=== PATIENT | male | born 1965 | race Caucasian/White ===

== ENCOUNTER 2018-08-01 11:19 | Inpatient (IN) | payer MEDICAID ==
[2018-08-01 11:53] LABS: ADD MAN DIFF? NO
[2018-08-01 11:57] LABS: ABNORMAL IP MESSAGE 1; BASOPHILS % 0.2 % (0.0-2.0); EOSINOPHILS % 0.4 % (0.0-7.0); HEMATOCRIT 16.4 % (42.0-52.0); LYMPHOCYTES # 1.5 10^3/ul (0.8-2.9); LYMPHOCYTES % 14.6 % (15.0-51.0); MEAN CORPUSCULAR HEMOGLOBIN 20.6 pg (29.0-33.0); MEAN CORPUSCULAR HGB CONC 28.7 g/dl (32.0-37.0); MEAN CORPUSCULAR VOLUME 71.9 fl (82.0-101.0); MEAN PLATELET VOLUME 9.4 fl (7.4-10.4); MONOCYTE # 0.5 10^3/ul (0.3-0.9); MONOCYTES % 5.3 % (0.0-11.0); NEUTROPHIL # 8.1 10^3/ul (1.6-7.5); NEUTROPHILS % 79.1 % (39.0-77.0); NUCLEATED RED BLOOD CELLS% 0.2 /100WBC (0.0-0.0); PLATELET COUNT 516 10^3/UL (140-415); POSITIVE DIFF @See below; RED BLOOD COUNT 2.28 10^6/ul (4.70-6.10); RED CELL DISTRIBUTION WIDTH 16.7 % (11.5-14.5)
[2018-08-01 11:57] LABS: WHITE BLOOD COUNT 10.2 10^3/ul (4.8-10.8)
[2018-08-01 12:13] LABS: ALANINE AMINOTRANSFERASE 19 IU/L (13-69); ALBUMIN 3.2 g/dl (3.3-4.9); ALBUMIN/GLOBULIN RATIO 0.94; ALKALINE PHOSPHATASE 81 IU/L (42-121); ANION GAP 12 (5-13); ASPARTATE AMINO TRANSFERASE 15 IU/L (15-46); BILIRUBIN,INDIRECT 0.4 mg/dl (0-1.1); BILIRUBIN,TOTAL 0.4 mg/dl (0.2-1.3); BLOOD UREA NITROGEN 11 mg/dl (7-20); CARBON DIOXIDE 22 mmol/L (21-31); CHLORIDE 107 mmol/L (97-110); GLUCOSE 161 mg/dl (70-220); LIPASE 31 U/L (23-300); POTASSIUM 3.4 mmol/L (3.5-5.1); SODIUM 141 mmol/L (135-144); TOTAL PROTEIN 6.6 g/dl (6.1-8.1)
[2018-08-01] MEDS: SOD CHLORIDE 0.9% 1,000 ML IV (12:15)
[2018-08-01] MEDS: PANTOPRAZOLE 40 MG INJ IV (12:15)
[2018-08-01 12:16] LABS: INR 0.99; PROTIME 13.2 Sec (11.9-14.9)
[2018-08-01 12:17] LABS: PARTIAL THROMBOPLASTIN TIME 25.7 Sec (23.0-35.0)
[2018-08-01 12:22] LABS: HEMOGLOBIN 4.7 g/dl (14.0-18.0)
[2018-08-01 12:23] LABS: PATH REVIEW? YES
[2018-08-01 13:00] LABS: FERRITIN 4.5 ng/ml (11.1-264.0)
[2018-08-01 13:07] LABS: ANISOCYTOSIS 1+ (0-0); BAND NEUTROPHILS #M 0.1 10^3/ul (0.0-0.6); BAND NEUTROPHILS % (M) 1 % (0-4); BURR CELLS 1+ (0-0); ELLIPTO 1+ (0-0); HYPOCHROMASIA 3+ (0-0); LYMPHOCYTES #M 0.8 10^3/ul (0.8-2.9); LYMPHOCYTES % (M) 8 % (15-51); MONOCYTE #M 0.4 10^3/ul (0.3-0.9); MONOCYTES % (M) 4 % (0-11); PLATELET ESTIMATE INCREASED; POLYCHROMASIA 3+ (0-0); SCHISTOCYTES 1+ (0-0); SEG NEUT #M 8.9 10^3/ul (1.6-7.5); SEGMENTED NEUTROPHILS (M) % 87 % (39-77); SMUDGE%M 2 % (0-0); TARGET CELLS 1+ (0-0)
[2018-08-01 13:30] LABS: FOLATE 13.9 ng/ml (2.8-20.0)
[2018-08-01] MEDS ORDERED: ONDANSETRON 4 MG INJ IV (14:30)
[2018-08-01] MEDS: DEXTROSE 5%-0.9% NACL 1,000 ML IV (14:52)
[2018-08-01] MEDS: POTASSIUM CHLORIDE (SR) 20 MEQ TAB PO (14:52)
[2018-08-01 16:51] LABS: IRON 10 ug/dl (35-150)
[2018-08-01 17:01] LABS: % IRON SATURATION 2 % SAT (22-52); TOTAL IRON BINDING CAPACITY 403 ug/dl (241-421)
[2018-08-01] MEDS: morphine 2 MG INJ IV ×3 (17:38→23:20)
[2018-08-01] MEDS ORDERED: PANTOPRAZOLE 40 MG INJ IV (18:00)
[2018-08-01 18:09] LABS: FERRITIN 4.7 ng/ml (11.1-264.0)
[2018-08-01 18:42] LABS: CARCINOEMBRYONIC ANTIGEN 4.8 ng/ml (0.0-5.0)
[2018-08-01] MEDS: PANTOPRAZOLE IV 80 MG in SOD CHLORIDE 0.9% 100 ML IV (20:26)
[2018-08-01] MEDS: SOD FERRIC GLUC COMPLX 125 MG in SOD CHLORIDE 0.9% 100 ML IVPB (20:26)
[2018-08-01] MEDS: DOCUSATE SODIUM 100 MG CAP PO (20:26)
[2018-08-01 22:30] LABS: HEMATOCRIT 19.4 % (42.0-52.0)
[2018-08-01] MEDS: IOHEXOL 14.3 MG(I)/ML (ADULT) BTL PO (22:35)
[2018-08-01 22:45] LABS: HEMOGLOBIN 5.9 g/dl (14.0-18.0)
[2018-08-01] MEDS: SOD CHLORIDE 0.9% 100 ML (23:58)
[2018-08-01] MEDS: IOHEXOL 300MG/ML 150 ML BTL (23:58)
[2018-08-02 00:46] LABS: HEMATOCRIT 18.7 % (42.0-52.0)
[2018-08-02 00:48] LABS: HEMOGLOBIN 5.7 g/dl (14.0-18.0)
[2018-08-02] MEDS: PANTOPRAZOLE IV 80 MG in SOD CHLORIDE 0.9% 100 ML IV ×3 (01:00→20:36)
[2018-08-02] MEDS: morphine 2 MG INJ IV ×7 (01:52→23:31)
[2018-08-02] MEDS: FUROSEMIDE 20 MG INJ IV (01:52)
[2018-08-02] MEDS: SOD CHLORIDE 0.9% 250 ML IV* (01:53)
[2018-08-02] MEDS: DEXTROSE 5%-0.9% NACL 1,000 ML IV ×2 (05:37→22:33)
[2018-08-02 06:38] LABS: ADD MAN DIFF? NO
[2018-08-02 06:41] LABS: WHITE BLOOD COUNT 10.4 10^3/ul (4.8-10.8)
[2018-08-02 06:41] LABS: BASOPHILS % 0.4 % (0.0-2.0); EOSINOPHILS % 0.3 % (0.0-7.0); HEMATOCRIT 23.4 % (42.0-52.0); HEMOGLOBIN 7.4 g/dl (14.0-18.0); LYMPHOCYTES % 9.8 % (15.0-51.0); MEAN CORPUSCULAR HEMOGLOBIN 23.9 pg (29.0-33.0); MEAN CORPUSCULAR HGB CONC 31.6 g/dl (32.0-37.0); MEAN CORPUSCULAR VOLUME 75.5 fl (82.0-101.0); MEAN PLATELET VOLUME 10.1 fl (7.4-10.4); MONOCYTE # 0.7 10^3/ul (0.3-0.9); MONOCYTES % 6.3 % (0.0-11.0); NEUTROPHIL # 8.6 10^3/ul (1.6-7.5); NEUTROPHILS % 82.8 % (39.0-77.0); NUCLEATED RED BLOOD CELLS% 0.2 /100WBC (0.0-0.0); PLATELET COUNT 461 10^3/UL (140-415)
[2018-08-02 07:16] LABS: ALANINE AMINOTRANSFERASE 17 IU/L (13-69); ALBUMIN/GLOBULIN RATIO 0.88; ALKALINE PHOSPHATASE 75 IU/L (42-121); ANION GAP 10 (5-13); ASPARTATE AMINO TRANSFERASE 18 IU/L (15-46); BILIRUBIN,INDIRECT 2.3 mg/dl (0-1.1); BILIRUBIN,TOTAL 2.3 mg/dl (0.2-1.3); BLOOD UREA NITROGEN 7 mg/dl (7-20); CALCIUM 8.7 mg/dl (8.4-10.2); CARBON DIOXIDE 26 mmol/L (21-31); CHLORIDE 103 mmol/L (97-110); GLUCOSE 112 mg/dl (70-220); MAGNESIUM 1.8 mg/dl (1.7-2.5); POTASSIUM 3.2 mmol/L (3.5-5.1); SODIUM 139 mmol/L (135-144); TOTAL PROTEIN 6.4 g/dl (6.1-8.1)
[2018-08-02] MEDS: DOCUSATE SODIUM 100 MG CAP PO ×2 (09:00→20:36)
[2018-08-02] MEDS: INFLUENZA VIRUS VACCINE 0.5 ML (DISPENSING) IM* (09:10)
[2018-08-02 11:04] LABS: CREATINE KINASE 44 IU/L (23-200)
[2018-08-02 11:16] LABS: CK INDEX 0.5; CK-MB 0.23 ng/ml (0.0-2.4)
[2018-08-02 11:21] LABS: TROPONIN-I 0.129 ng/ml (0.000-0.120)
[2018-08-02 11:24] LABS: IMMEDIATE SPIN CROSSMATCH 1 4
[2018-08-02 11:46] LABS: HEMATOCRIT 22.5 % (42.0-52.0); HEMOGLOBIN 7.2 g/dl (14.0-18.0)
[2018-08-02 15:23] LABS: HEMATOCRIT 26.9 % (42.0-52.0); HEMOGLOBIN 8.6 g/dl (14.0-18.0)
[2018-08-02 15:43] LABS: CREATINE KINASE 44 IU/L (23-200)
[2018-08-02 15:55] LABS: CK INDEX 0.5; CK-MB < 0.22 ng/ml (0.0-2.4)
[2018-08-02] MEDS: BISACODYL (EC) 5 MG TAB PO (16:20)
[2018-08-02] MEDS: SOD FERRIC GLUC COMPLX 125 MG in SOD CHLORIDE 0.9% 100 ML IVPB (16:24)
[2018-08-02] MEDS: MAGNESIUM CITRATE 300 ML BTL PO (18:10)
[2018-08-02] MEDS: POLYETHYLENE GLYCOL 3350 119 GM POWDER PO (18:11)
[2018-08-02] MEDS: POTASSIUM CHLORIDE (SR) 20 MEQ TAB PO (20:36)
[2018-08-02 22:07] LABS: HEMATOCRIT 25.5 % (42.0-52.0); HEMOGLOBIN 8.4 g/dl (14.0-18.0)
[2018-08-02 22:39] LABS: CREATINE KINASE 36 IU/L (23-200)
[2018-08-02 22:52] LABS: CK INDEX 0.6; CK-MB < 0.22 ng/ml (0.0-2.4)
[2018-08-02 22:57] LABS: TROPONIN-I 0.125 ng/ml (0.000-0.120)
[2018-08-03] MEDS: morphine 2 MG INJ IV ×5 (03:21→20:50)
[2018-08-03] MEDS: PANTOPRAZOLE 40 MG INJ IV ×2 (06:03→19:07)
[2018-08-03] MEDS: POLYETHYLENE GLYCOL 3350 119 GM POWDER PO (06:04)
[2018-08-03 06:29] LABS: ADD MAN DIFF? NO
[2018-08-03 06:39] LABS: BASOPHIL # 0.1 10^3/ul (0.0-0.1); BASOPHILS % 0.5 % (0.0-2.0); EOSINOPHILS # 0.1 10^3/ul (0.0-0.5); EOSINOPHILS % 0.8 % (0.0-7.0); HEMATOCRIT 27.1 % (42.0-52.0); HEMOGLOBIN 8.5 g/dl (14.0-18.0); LYMPHOCYTES # 1.6 10^3/ul (0.8-2.9); LYMPHOCYTES % 16.1 % (15.0-51.0); MEAN CORPUSCULAR HEMOGLOBIN 24.3 pg (29.0-33.0); MEAN CORPUSCULAR HGB CONC 31.4 g/dl (32.0-37.0); MEAN CORPUSCULAR VOLUME 77.4 fl (82.0-101.0); MEAN PLATELET VOLUME 10.1 fl (7.4-10.4); MONOCYTE # 0.7 10^3/ul (0.3-0.9); MONOCYTES % 6.9 % (0.0-11.0); NEUTROPHIL # 7.5 10^3/ul (1.6-7.5); NEUTROPHILS % 75.3 % (39.0-77.0); NUCLEATED RED BLOOD CELLS% 0.2 /100WBC (0.0-0.0); PLATELET COUNT 466 10^3/UL (140-415); RED CELL DISTRIBUTION WIDTH 18.5 % (11.5-14.5)
[2018-08-03 07:08] LABS: ALANINE AMINOTRANSFERASE 11 IU/L (13-69); ALBUMIN 3.4 g/dl (3.3-4.9); ALBUMIN/GLOBULIN RATIO 1.03; ALKALINE PHOSPHATASE 74 IU/L (42-121); ANION GAP 11 (5-13); ASPARTATE AMINO TRANSFERASE 15 IU/L (15-46); BILIRUBIN,INDIRECT 1.7 mg/dl (0-1.1); BILIRUBIN,TOTAL 1.7 mg/dl (0.2-1.3); BLOOD UREA NITROGEN 6 mg/dl (7-20); CALCIUM 8.5 mg/dl (8.4-10.2); CARBON DIOXIDE 25 mmol/L (21-31); CHLORIDE 106 mmol/L (97-110); CREATININE 0.68 mg/dl (0.61-1.24); Estimated GFR > 60 mL/min (>60); GLUCOSE 106 mg/dl (70-220); POTASSIUM 3.3 mmol/L (3.5-5.1); SODIUM 142 mmol/L (135-144); TOTAL PROTEIN 6.7 g/dl (6.1-8.1)
[2018-08-03 07:10] LABS: LACTATE DEHYDROGENASE 366 IU/L (313-618)
[2018-08-03 07:10] LABS: BILIRUBIN,INDIRECT 1.7 mg/dl (0-1.1); BILIRUBIN,TOTAL 1.7 mg/dl (0.2-1.3)
[2018-08-03] MEDS: BISACODYL (EC) 5 MG TAB PO (08:29)
[2018-08-03] MEDS: DOCUSATE SODIUM 100 MG CAP PO ×2 (08:29→20:48)
[2018-08-03 13:24] LABS: HEMATOCRIT 27.5 % (42.0-52.0); HEMOGLOBIN 8.8 g/dl (14.0-18.0)
[2018-08-03] MEDS: POTASSIUM CHLORIDE (SR) 20 MEQ TAB PO (14:14)
[2018-08-03] MEDS: DEXTROSE 5%-0.9% NACL 1,000 ML IV (15:00)
[2018-08-03] MEDS: PROPOFOL 60 ML (17:35)
[2018-08-03] MEDS: LIDOCAINE 2% (SDV) 5 ML INJ (17:35)
[2018-08-03] MEDS: SOD FERRIC GLUC COMPLX 125 MG in SOD CHLORIDE 0.9% 100 ML IVPB (19:07)
[2018-08-04] MEDS: morphine 2 MG INJ IV ×3 (00:54→09:12)
[2018-08-04] MEDS: PANTOPRAZOLE 40 MG INJ IV ×2 (05:17→17:27)
[2018-08-04 06:17] LABS: ADD MAN DIFF? NO
[2018-08-04 06:22] LABS: WHITE BLOOD COUNT 11.1 10^3/ul (4.8-10.8)
[2018-08-04 06:22] LABS: BASOPHIL # 0.1 10^3/ul (0.0-0.1); BASOPHILS % 0.5 % (0.0-2.0); EOSINOPHILS # 0.1 10^3/ul (0.0-0.5); EOSINOPHILS % 0.5 % (0.0-7.0); HEMATOCRIT 26.1 % (42.0-52.0); HEMOGLOBIN 8.2 g/dl (14.0-18.0); LYMPHOCYTES # 1.2 10^3/ul (0.8-2.9); LYMPHOCYTES % 11.1 % (15.0-51.0); MEAN CORPUSCULAR HEMOGLOBIN 24.6 pg (29.0-33.0); MEAN CORPUSCULAR HGB CONC 31.4 g/dl (32.0-37.0); MEAN CORPUSCULAR VOLUME 78.4 fl (82.0-101.0); MEAN PLATELET VOLUME 9.9 fl (7.4-10.4); MONOCYTE # 0.8 10^3/ul (0.3-0.9); MONOCYTES % 7.2 % (0.0-11.0); NEUTROPHIL # 8.9 10^3/ul (1.6-7.5); NEUTROPHILS % 80.4 % (39.0-77.0); PLATELET COUNT 481 10^3/UL (140-415); RED BLOOD COUNT 3.33 10^6/ul (4.70-6.10); RED CELL DISTRIBUTION WIDTH 19.1 % (11.5-14.5)
[2018-08-04 06:43] LABS: ANION GAP 9 (5-13); BLOOD UREA NITROGEN 8 mg/dl (7-20); CALCIUM 8.4 mg/dl (8.4-10.2); CARBON DIOXIDE 24 mmol/L (21-31); CHLORIDE 106 mmol/L (97-110); CREATININE 0.77 mg/dl (0.61-1.24); Estimated GFR > 60 mL/min (>60); GLUCOSE 99 mg/dl (70-220); POTASSIUM 3.7 mmol/L (3.5-5.1); SODIUM 139 mmol/L (135-144)
[2018-08-04 06:53] LABS: TROPONIN-I 0.038 ng/ml (0.000-0.120)
[2018-08-04] MEDS: DOCUSATE SODIUM 100 MG CAP PO ×2 (08:47→21:00)
[2018-08-04] MEDS: HYDROmorphONE 1 MG/ML SYG IV ×3 (10:25→21:12)
[2018-08-04] MEDS: SOD CHLORIDE 0.9% 1,000 ML IV (10:28)
[2018-08-04 15:21] LABS: HAPTOGLOBIN 322 mg/dL (43-212)
[2018-08-04] MEDS: SOD FERRIC GLUC COMPLX 125 MG in SOD CHLORIDE 0.9% 100 ML IVPB (16:44)
[2018-08-05] MEDS: HYDROmorphONE 1 MG/ML SYG IV ×4 (02:40→19:54)
[2018-08-05] MEDS: PANTOPRAZOLE 40 MG INJ IV ×2 (05:31→18:03)
[2018-08-05 06:08] LABS: ADD MAN DIFF? NO
[2018-08-05 06:15] LABS: BASOPHIL # 0.1 10^3/ul (0.0-0.1); BASOPHILS % 0.4 % (0.0-2.0); EOSINOPHILS # 0.1 10^3/ul (0.0-0.5); EOSINOPHILS % 0.9 % (0.0-7.0); HEMATOCRIT 26.6 % (42.0-52.0); HEMOGLOBIN 8.4 g/dl (14.0-18.0); LYMPHOCYTES # 1.6 10^3/ul (0.8-2.9); LYMPHOCYTES % 14.2 % (15.0-51.0); MEAN CORPUSCULAR HEMOGLOBIN 24.7 pg (29.0-33.0); MEAN CORPUSCULAR HGB CONC 31.6 g/dl (32.0-37.0); MEAN CORPUSCULAR VOLUME 78.2 fl (82.0-101.0); MEAN PLATELET VOLUME 9.8 fl (7.4-10.4); MONOCYTE # 0.9 10^3/ul (0.3-0.9); MONOCYTES % 7.6 % (0.0-11.0); NEUTROPHIL # 8.7 10^3/ul (1.6-7.5); NEUTROPHILS % 76.5 % (39.0-77.0); PLATELET COUNT 477 10^3/UL (140-415); RED CELL DISTRIBUTION WIDTH 20.3 % (11.5-14.5)
[2018-08-05 06:15] LABS: WHITE BLOOD COUNT 11.3 10^3/ul (4.8-10.8)
[2018-08-05 07:08] LABS: ANION GAP 10 (5-13); BLOOD UREA NITROGEN 8 mg/dl (7-20); CALCIUM 8.7 mg/dl (8.4-10.2); CARBON DIOXIDE 27 mmol/L (21-31); CHLORIDE 102 mmol/L (97-110); CREATININE 0.75 mg/dl (0.61-1.24); Estimated GFR > 60 mL/min (>60); GLUCOSE 100 mg/dl (70-220); POTASSIUM 3.8 mmol/L (3.5-5.1); SODIUM 139 mmol/L (135-144)
[2018-08-05] MEDS: DOCUSATE SODIUM 100 MG CAP PO ×2 (09:00→20:02)
[2018-08-05] MEDS: HYDROCODONE/APAP (5/325) TAB PO ×2 (12:05→18:04)
[2018-08-05] MEDS: SOD FERRIC GLUC COMPLX 125 MG in SOD CHLORIDE 0.9% 100 ML IVPB (18:04)
[2018-08-06] MEDS: HYDROmorphONE 1 MG/ML SYG IV ×5 (02:02→20:15)
[2018-08-06] MEDS: HYDROCODONE/APAP (5/325) TAB PO ×2 (04:34→16:43)
[2018-08-06] MEDS: PANTOPRAZOLE 40 MG INJ IV ×2 (05:55→16:45)
[2018-08-06] MEDS: DOCUSATE SODIUM 100 MG CAP PO ×2 (08:16→20:14)
[2018-08-06] MEDS ORDERED: ACETAMINOPHEN 325 MG TAB PO (16:00)
[2018-08-06] MEDS: SOD FERRIC GLUC COMPLX 125 MG in SOD CHLORIDE 0.9% 100 ML IVPB (16:43)
[2018-08-07] MEDS: HYDROCODONE/APAP (5/325) TAB PO ×3 (00:02→20:56)
[2018-08-07] MEDS: HYDROmorphONE 1 MG/ML SYG IV ×5 (03:27→22:35)
[2018-08-07] MEDS: PANTOPRAZOLE 40 MG INJ IV (05:54)
[2018-08-07] MEDS: DOCUSATE SODIUM 100 MG CAP PO (08:48)
[2018-08-07] MEDS: SUCRALFATE 1 GM TAB PO ×3 (12:50→20:56)
[2018-08-07] MEDS: IOHEXOL 14.3 MG(I)/ML (ADULT) BTL PO (13:00)
[2018-08-07] MEDS: IOHEXOL 100 ML (13:46)
[2018-08-07] MEDS: SOD CHLORIDE 0.9% 100 ML (13:46)
[2018-08-07] MEDS: SOD FERRIC GLUC COMPLX 125 MG in SOD CHLORIDE 0.9% 100 ML IVPB (17:03)
[2018-08-07] MEDS: PANTOPRAZOLE (EC) 40 MG TAB PO (17:03)
[2018-08-08] MEDS: HYDROmorphONE 1 MG/ML SYG IV ×5 (02:38→21:47)
[2018-08-08] MEDS: PANTOPRAZOLE (EC) 40 MG TAB PO ×2 (05:54→17:01)
[2018-08-08 06:12] LABS: ADD MAN DIFF? NO
[2018-08-08 06:15] LABS: WHITE BLOOD COUNT 11.1 10^3/ul (4.8-10.8)
[2018-08-08 06:15] LABS: BASOPHILS % 0.2 % (0.0-2.0); EOSINOPHILS # 0.1 10^3/ul (0.0-0.5); EOSINOPHILS % 0.7 % (0.0-7.0); HEMATOCRIT 27.8 % (42.0-52.0); HEMOGLOBIN 8.7 g/dl (14.0-18.0); LYMPHOCYTES # 1.4 10^3/ul (0.8-2.9); LYMPHOCYTES % 12.3 % (15.0-51.0); MEAN CORPUSCULAR HEMOGLOBIN 24.6 pg (29.0-33.0); MEAN CORPUSCULAR HGB CONC 31.3 g/dl (32.0-37.0); MEAN CORPUSCULAR VOLUME 78.5 fl (82.0-101.0); MEAN PLATELET VOLUME 9.9 fl (7.4-10.4); MONOCYTE # 0.6 10^3/ul (0.3-0.9); MONOCYTES % 5.6 % (0.0-11.0); NEUTROPHILS % 80.8 % (39.0-77.0); PLATELET COUNT 483 10^3/UL (140-415); RED BLOOD COUNT 3.54 10^6/ul (4.70-6.10); RED CELL DISTRIBUTION WIDTH 21.7 % (11.5-14.5)
[2018-08-08 06:36] LABS: ALANINE AMINOTRANSFERASE 16 IU/L (13-69); ALBUMIN/GLOBULIN RATIO 0.88; ALKALINE PHOSPHATASE 134 IU/L (42-121); ANION GAP 11 (5-13); ASPARTATE AMINO TRANSFERASE 21 IU/L (15-46); BILIRUBIN,INDIRECT 0.4 mg/dl (0-1.1); BILIRUBIN,TOTAL 0.4 mg/dl (0.2-1.3); BLOOD UREA NITROGEN 7 mg/dl (7-20); CALCIUM 8.8 mg/dl (8.4-10.2); CARBON DIOXIDE 32 mmol/L (21-31); CHLORIDE 97 mmol/L (97-110); Estimated GFR > 60 mL/min (>60); GLUCOSE 110 mg/dl (70-220); POTASSIUM 3.3 mmol/L (3.5-5.1); SODIUM 140 mmol/L (135-144); TOTAL PROTEIN 6.4 g/dl (6.1-8.1)
[2018-08-08 06:38] LABS: MAGNESIUM 1.8 mg/dl (1.7-2.5)
[2018-08-08] MEDS: SUCRALFATE 1 GM TAB PO ×4 (08:41→20:08)
[2018-08-08] MEDS: HYDROCODONE/APAP (5/325) TAB PO ×2 (10:15→19:23)
[2018-08-08] MEDS: SOD CHLORIDE 0.9% 500 ML IV (11:10)
[2018-08-08] MEDS: POTASSIUM CHLORIDE (SR) 20 MEQ TAB PO (11:10)
[2018-08-08] MEDS: SOD FERRIC GLUC COMPLX 125 MG in SOD CHLORIDE 0.9% 100 ML IVPB (16:56)
[2018-08-09] MEDS: HYDROCODONE/APAP (5/325) TAB PO ×4 (00:02→22:59)
[2018-08-09] MEDS: HYDROmorphONE 1 MG/ML SYG IV ×5 (01:42→20:06)
[2018-08-09] MEDS: PANTOPRAZOLE (EC) 40 MG TAB PO ×2 (06:31→17:11)
[2018-08-09 07:06] LABS: ADD MAN DIFF? NO
[2018-08-09 07:09] LABS: WHITE BLOOD COUNT 9.2 10^3/ul (4.8-10.8)
[2018-08-09 07:09] LABS: ABNORMAL IP MESSAGE 1; BASOPHIL # 0.1 10^3/ul (0.0-0.1); BASOPHILS % 0.5 % (0.0-2.0); EOSINOPHILS # 0.1 10^3/ul (0.0-0.5); HEMATOCRIT 27.4 % (42.0-52.0); HEMOGLOBIN 8.6 g/dl (14.0-18.0); LYMPHOCYTES # 1.3 10^3/ul (0.8-2.9); LYMPHOCYTES % 13.9 % (15.0-51.0); MEAN CORPUSCULAR HGB CONC 31.4 g/dl (32.0-37.0); MEAN CORPUSCULAR VOLUME 79.7 fl (82.0-101.0); MEAN PLATELET VOLUME 10.5 fl (7.4-10.4); MONOCYTE # 0.7 10^3/ul (0.3-0.9); MONOCYTES % 7.2 % (0.0-11.0); NEUTROPHIL # 7.1 10^3/ul (1.6-7.5); NEUTROPHILS % 77.1 % (39.0-77.0); PLATELET COUNT 490 10^3/UL (140-415); POSITIVE DIFF @See below; RED BLOOD COUNT 3.44 10^6/ul (4.70-6.10); RED CELL DISTRIBUTION WIDTH 22.1 % (11.5-14.5)
[2018-08-09 07:39] LABS: ANION GAP 11 (5-13); BLOOD UREA NITROGEN 7 mg/dl (7-20); CALCIUM 8.8 mg/dl (8.4-10.2); CARBON DIOXIDE 29 mmol/L (21-31); CHLORIDE 99 mmol/L (97-110); CREATININE 0.69 mg/dl (0.61-1.24); Estimated GFR > 60 mL/min (>60); GLUCOSE 95 mg/dl (70-220); POTASSIUM 3.5 mmol/L (3.5-5.1); SODIUM 139 mmol/L (135-144)
[2018-08-09] MEDS: SUCRALFATE 1 GM TAB PO ×4 (08:17→21:00)
[2018-08-09] MEDS: SOD FERRIC GLUC COMPLX 125 MG in SOD CHLORIDE 0.9% 100 ML IVPB (17:58)
[2018-08-10] MEDS: HYDROmorphONE 1 MG/ML SYG IV ×5 (00:28→23:14)
[2018-08-10] MEDS: HYDROCODONE/APAP (5/325) TAB PO ×4 (02:59→22:07)
[2018-08-10] MEDS: PANTOPRAZOLE (EC) 40 MG TAB PO ×2 (06:16→17:29)
[2018-08-10] MEDS: SUCRALFATE 1 GM TAB PO ×4 (08:17→20:55)
[2018-08-10] MEDS: IOHEXOL 14.3 MG(I)/ML (ADULT) BTL PO (15:57)
[2018-08-10] MEDS: IOHEXOL 300MG/ML 150 ML BTL (18:14)
[2018-08-10] MEDS: SOD CHLORIDE 0.9% 100 ML (18:14)
[2018-08-10] MEDS: SOD FERRIC GLUC COMPLX 125 MG in SOD CHLORIDE 0.9% 100 ML IVPB (19:22)
[2018-08-11] MEDS: HYDROCODONE/APAP (5/325) TAB PO ×4 (02:36→23:58)
[2018-08-11] MEDS: HYDROmorphONE 1 MG/ML SYG IV ×5 (03:43→20:31)
[2018-08-11] MEDS: PANTOPRAZOLE (EC) 40 MG TAB PO ×2 (06:11→17:19)
[2018-08-11] MEDS: SUCRALFATE 1 GM TAB PO ×4 (08:06→20:32)
[2018-08-11 08:15] LABS: ADD MAN DIFF? NO
[2018-08-11 08:23] LABS: WHITE BLOOD COUNT 9.4 10^3/ul (4.8-10.8)
[2018-08-11 08:23] LABS: ABNORMAL IP MESSAGE 1; BASOPHILS % 0.4 % (0.0-2.0); EOSINOPHILS # 0.1 10^3/ul (0.0-0.5); EOSINOPHILS % 1.5 % (0.0-7.0); HEMATOCRIT 28.9 % (42.0-52.0); HEMOGLOBIN 8.9 g/dl (14.0-18.0); LYMPHOCYTES # 1.4 10^3/ul (0.8-2.9); LYMPHOCYTES % 14.7 % (15.0-51.0); MEAN CORPUSCULAR HEMOGLOBIN 24.5 pg (29.0-33.0); MEAN CORPUSCULAR HGB CONC 30.8 g/dl (32.0-37.0); MEAN CORPUSCULAR VOLUME 79.6 fl (82.0-101.0); MEAN PLATELET VOLUME 10.3 fl (7.4-10.4); MONOCYTE # 0.6 10^3/ul (0.3-0.9); MONOCYTES % 5.9 % (0.0-11.0); NEUTROPHIL # 7.2 10^3/ul (1.6-7.5); NEUTROPHILS % 77.2 % (39.0-77.0); PLATELET COUNT 539 10^3/UL (140-415); POSITIVE DIFF @See below; RED BLOOD COUNT 3.63 10^6/ul (4.70-6.10); RED CELL DISTRIBUTION WIDTH 22.2 % (11.5-14.5)
[2018-08-11 08:39] LABS: ANION GAP 8 (5-13); BLOOD UREA NITROGEN 7 mg/dl (7-20); CALCIUM 9.2 mg/dl (8.4-10.2); CARBON DIOXIDE 31 mmol/L (21-31); CHLORIDE 100 mmol/L (97-110); CREATININE 0.74 mg/dl (0.61-1.24); Estimated GFR > 60 mL/min (>60); GLUCOSE 99 mg/dl (70-220); POTASSIUM 3.6 mmol/L (3.5-5.1); SODIUM 139 mmol/L (135-144)
[2018-08-12] MEDS: HYDROmorphONE 1 MG/ML SYG IV ×6 (01:37→23:30)
[2018-08-12] MEDS: PANTOPRAZOLE (EC) 40 MG TAB PO ×2 (05:18→17:38)
[2018-08-12] MEDS: HYDROCODONE/APAP (5/325) TAB PO ×4 (05:21→21:43)
[2018-08-12 07:32] LABS: ABNORMAL IP MESSAGE 1; ADD MAN DIFF? NO; BASOPHIL # 0.1 10^3/ul (0.0-0.1); BASOPHILS % 0.5 % (0.0-2.0); EOSINOPHILS # 0.1 10^3/ul (0.0-0.5); EOSINOPHILS % 1.2 % (0.0-7.0); HEMATOCRIT 27.3 % (42.0-52.0); HEMOGLOBIN 8.5 g/dl (14.0-18.0); LYMPHOCYTES # 1.1 10^3/ul (0.8-2.9); LYMPHOCYTES % 11.7 % (15.0-51.0); MEAN CORPUSCULAR HEMOGLOBIN 24.9 pg (29.0-33.0); MEAN CORPUSCULAR HGB CONC 31.1 g/dl (32.0-37.0); MEAN CORPUSCULAR VOLUME 79.8 fl (82.0-101.0); MEAN PLATELET VOLUME 10.2 fl (7.4-10.4); MONOCYTE # 0.6 10^3/ul (0.3-0.9); MONOCYTES % 6.2 % (0.0-11.0); NEUTROPHIL # 7.5 10^3/ul (1.6-7.5); NEUTROPHILS % 80.1 % (39.0-77.0); PLATELET COUNT 547 10^3/UL (140-415); POSITIVE DIFF @See below; RED BLOOD COUNT 3.42 10^6/ul (4.70-6.10); RED CELL DISTRIBUTION WIDTH 22.7 % (11.5-14.5)
[2018-08-12 07:32] LABS: WHITE BLOOD COUNT 9.4 10^3/ul (4.8-10.8)
[2018-08-12] MEDS: SUCRALFATE 1 GM TAB PO ×4 (08:22→21:42)
[2018-08-12 08:24] LABS: ANION GAP 10 (5-13); BLOOD UREA NITROGEN 9 mg/dl (7-20); CARBON DIOXIDE 31 mmol/L (21-31); CHLORIDE 99 mmol/L (97-110); CREATININE 0.68 mg/dl (0.61-1.24); Estimated GFR > 60 mL/min (>60); GLUCOSE 107 mg/dl (70-220); POTASSIUM 3.8 mmol/L (3.5-5.1); SODIUM 140 mmol/L (135-144)
[2018-08-13] MEDS: HYDROmorphONE 1 MG/ML SYG IV ×5 (03:23→20:26)
[2018-08-13] MEDS: PANTOPRAZOLE (EC) 40 MG TAB PO ×2 (05:08→17:45)
[2018-08-13] MEDS: HYDROCODONE/APAP (5/325) TAB PO (05:09)
[2018-08-13] MEDS: SUCRALFATE 1 GM TAB PO ×4 (08:05→20:25)
[2018-08-13] MEDS: HYDROCODONE/APAP (7.5/325) TAB PO ×3 (13:05→23:28)
[2018-08-14] MEDS: HYDROmorphONE 1 MG/ML SYG IV ×7 (00:36→20:26)
[2018-08-14] MEDS: HYDROCODONE/APAP (7.5/325) TAB PO ×6 (03:03→23:27)
[2018-08-14] MEDS: PANTOPRAZOLE (EC) 40 MG TAB PO ×2 (05:54→17:10)
[2018-08-14] MEDS: SUCRALFATE 1 GM TAB PO ×4 (08:17→20:26)
[2018-08-15] MEDS: HYDROmorphONE 1 MG/ML SYG IV ×6 (00:32→21:10)
[2018-08-15] MEDS: HYDROCODONE/APAP (7.5/325) TAB PO ×3 (03:29→11:44)
[2018-08-15] MEDS: PANTOPRAZOLE (EC) 40 MG TAB PO ×2 (06:05→17:06)
[2018-08-15 06:21] LABS: ADD MAN DIFF? NO
[2018-08-15 06:26] LABS: ABNORMAL IP MESSAGE 1; BASOPHIL # 0.1 10^3/ul (0.0-0.1); BASOPHILS % 0.7 % (0.0-2.0); EOSINOPHILS # 0.2 10^3/ul (0.0-0.5); EOSINOPHILS % 1.9 % (0.0-7.0); HEMATOCRIT 28.9 % (42.0-52.0); HEMOGLOBIN 8.9 g/dl (14.0-18.0); LYMPHOCYTES # 1.6 10^3/ul (0.8-2.9); LYMPHOCYTES % 18.8 % (15.0-51.0); MEAN CORPUSCULAR HEMOGLOBIN 24.7 pg (29.0-33.0); MEAN CORPUSCULAR HGB CONC 30.8 g/dl (32.0-37.0); MEAN CORPUSCULAR VOLUME 80.3 fl (82.0-101.0); MEAN PLATELET VOLUME 11.1 fl (7.4-10.4); MONOCYTE # 0.5 10^3/ul (0.3-0.9); MONOCYTES % 6.2 % (0.0-11.0); NEUTROPHIL # 6.2 10^3/ul (1.6-7.5); NEUTROPHILS % 72.2 % (39.0-77.0); PLATELET COUNT 479 10^3/UL (140-415); POSITIVE DIFF @See below; RED CELL DISTRIBUTION WIDTH 22.6 % (11.5-14.5)
[2018-08-15 06:26] LABS: WHITE BLOOD COUNT 8.6 10^3/ul (4.8-10.8)
[2018-08-15 06:49] LABS: ALANINE AMINOTRANSFERASE 20 IU/L (13-69); ALBUMIN 3.5 g/dl (3.3-4.9); ALKALINE PHOSPHATASE 177 IU/L (42-121); ANION GAP 9 (5-13); ASPARTATE AMINO TRANSFERASE 24 IU/L (15-46); BILIRUBIN,INDIRECT 0.2 mg/dl (0-1.1); BILIRUBIN,TOTAL 0.2 mg/dl (0.2-1.3); BLOOD UREA NITROGEN 12 mg/dl (7-20); CALCIUM 8.9 mg/dl (8.4-10.2); CARBON DIOXIDE 25 mmol/L (21-31); CHLORIDE 104 mmol/L (97-110); CREATININE 0.65 mg/dl (0.61-1.24); Estimated GFR > 60 mL/min (>60); GLUCOSE 101 mg/dl (70-220); SODIUM 138 mmol/L (135-144)
[2018-08-15] MEDS: SUCRALFATE 1 GM TAB PO ×4 (08:53→20:01)
[2018-08-15] MEDS: HYDROCODONE/APAP (10/325) TAB PO ×2 (15:46→19:53)
[2018-08-16] MEDS: HYDROCODONE/APAP (10/325) TAB PO ×6 (00:01→20:10)
[2018-08-16] MEDS: HYDROmorphONE 1 MG/ML SYG IV ×6 (01:10→22:04)
[2018-08-16] MEDS: PANTOPRAZOLE (EC) 40 MG TAB PO ×2 (05:51→18:01)
[2018-08-16 07:54] LABS: ADD MAN DIFF? NO
[2018-08-16 08:00] LABS: WHITE BLOOD COUNT 8.2 10^3/ul (4.8-10.8)
[2018-08-16 08:00] LABS: ABNORMAL IP MESSAGE 1; BASOPHILS % 0.4 % (0.0-2.0); EOSINOPHILS # 0.1 10^3/ul (0.0-0.5); EOSINOPHILS % 1.5 % (0.0-7.0); HEMATOCRIT 29.4 % (42.0-52.0); HEMOGLOBIN 9.1 g/dl (14.0-18.0); LYMPHOCYTES # 1.4 10^3/ul (0.8-2.9); LYMPHOCYTES % 17.1 % (15.0-51.0); MEAN CORPUSCULAR HEMOGLOBIN 24.7 pg (29.0-33.0); MEAN CORPUSCULAR VOLUME 79.7 fl (82.0-101.0); MEAN PLATELET VOLUME 9.8 fl (7.4-10.4); MONOCYTE # 0.5 10^3/ul (0.3-0.9); MONOCYTES % 6.2 % (0.0-11.0); NEUTROPHIL # 6.1 10^3/ul (1.6-7.5); NEUTROPHILS % 74.4 % (39.0-77.0); PLATELET COUNT 591 10^3/UL (140-415); POSITIVE DIFF @See below; RED BLOOD COUNT 3.69 10^6/ul (4.70-6.10); RED CELL DISTRIBUTION WIDTH 22.2 % (11.5-14.5)
[2018-08-16 08:20] LABS: PHOSPHORUS 4.8 mg/dl (2.5-4.9)
[2018-08-16 08:20] LABS: MAGNESIUM 1.9 mg/dl (1.7-2.5)
[2018-08-16 08:23] LABS: ALANINE AMINOTRANSFERASE 19 IU/L (13-69); ALBUMIN 3.7 g/dl (3.3-4.9); ALBUMIN/GLOBULIN RATIO 1.08; ALKALINE PHOSPHATASE 195 IU/L (42-121); ANION GAP 11 (5-13); ASPARTATE AMINO TRANSFERASE 22 IU/L (15-46); BILIRUBIN,INDIRECT 0.3 mg/dl (0-1.1); BILIRUBIN,TOTAL 0.3 mg/dl (0.2-1.3); BLOOD UREA NITROGEN 11 mg/dl (7-20); CALCIUM 9.1 mg/dl (8.4-10.2); CARBON DIOXIDE 27 mmol/L (21-31); CHLORIDE 102 mmol/L (97-110); CREATININE 0.71 mg/dl (0.61-1.24); Estimated GFR > 60 mL/min (>60); GLUCOSE 101 mg/dl (70-220); POTASSIUM 3.9 mmol/L (3.5-5.1); SODIUM 140 mmol/L (135-144); TOTAL PROTEIN 7.1 g/dl (6.1-8.1)
[2018-08-16] MEDS: SUCRALFATE 1 GM TAB PO ×4 (08:25→20:38)
[2018-08-17] MEDS: HYDROCODONE/APAP (10/325) TAB PO ×2 (00:02→08:09)
[2018-08-17] MEDS: HYDROmorphONE 1 MG/ML SYG IV ×3 (02:05→10:16)
[2018-08-17] MEDS: PANTOPRAZOLE (EC) 40 MG TAB PO (05:56)
[2018-08-17] MEDS: SUCRALFATE 1 GM TAB PO (08:09)
== END 2018-08-17 12:05 | disposition home or self-care (01) | DRG 374 ==
LOC: 5EC 08-05 11:20 → E/R 11:19 → TEL 12:27
PROC: 0DB88ZX Excision of Small Intestine, Via Natural or Artificial Opening Endoscopic, Diagnostic (ICD-10-PCS; principal; 2018-08-03 16:35)
PROC: 0DJD8ZZ Inspection of Lower Intestinal Tract, Via Natural or Artificial Opening Endoscopic (ICD-10-PCS; 2018-08-03 16:35)
PROC: 30233N1 Transfusion of Nonautologous Red Blood Cells into Peripheral Vein, Percutaneous Approach (ICD-10-PCS; 2018-08-03 16:35)
DX: C18.9 Malignant neoplasm of colon, unspecified (principal); I21.A1 Myocardial infarction type 2; C78.4 Secondary malignant neoplasm of small intestine; D62 Acute posthemorrhagic anemia; Z90.49 Acquired absence of other specified parts of digestive tract; E87.6 Hypokalemia; Z87.891 Personal history of nicotine dependence; D50.0 Iron deficiency anemia secondary to blood loss (chronic); I80.8 Phlebitis and thrombophlebitis of other sites; D47.3 Essential (hemorrhagic) thrombocythemia; E80.6 Other disorders of bilirubin metabolism
CPT/HCPCS: 36415; 36430; 71045; 71260; 74176; 74177; 74178; 74182; 80048; 80053; 82247; 82248; 82378; 82550; 82553; 82607; 82728; 82746; 83010; 83540; 83615; 83690; 83735; 84100; 84484; 85014; 85018; 85025; 85610; 85730; 86850; 86900; 86901; 86920; 88305; 90686; 93005; 93306; 93971; 96374; 99291-25

== ENCOUNTER 2018-11-30 16:29 | Inpatient (IN) | payer MEDICAID ==
[2018-11-30] MEDS: POTASSIUM CHLORIDE 100 ML IVPB ×2 (01:58→17:51)
[2018-11-30] MEDS ORDERED: ASPIRIN 81 MG TAB PO (16:58)
[2018-11-30] MEDS: morphine 10 MG INJ IV (17:13)
[2018-11-30 17:19] LABS: ABNORMAL IP MESSAGE 1; HEMATOCRIT 16.4 % (42.0-52.0); MEAN CORPUSCULAR HEMOGLOBIN 18.3 pg (29.0-33.0); MEAN CORPUSCULAR HGB CONC 26.8 g/dl (32.0-37.0); MEAN CORPUSCULAR VOLUME 68.3 fl (82.0-101.0); MEAN PLATELET VOLUME 9.9 fl (7.4-10.4); PLATELET COUNT 459 10^3/UL (140-415); POSITIVE DIFF @See below; RED CELL DISTRIBUTION WIDTH 18.2 % (11.5-14.5)
[2018-11-30 17:19] LABS: WHITE BLOOD COUNT 10.6 10^3/ul (4.8-10.8)
[2018-11-30 17:28] LABS: ADD MAN DIFF? YES; HEMOGLOBIN 4.4 g/dl (14.0-18.0); PATH REVIEW? YES
[2018-11-30 17:37] LABS: ANION GAP 12 (5-13); BLOOD UREA NITROGEN 15 mg/dl (7-20); CALCIUM 8.9 mg/dl (8.4-10.2); CARBON DIOXIDE 24 mmol/L (21-31); CHLORIDE 106 mmol/L (97-110); CREATININE 0.91 mg/dl (0.61-1.24); Estimated GFR > 60 mL/min (>60); GLUCOSE 85 mg/dl (70-220); SODIUM 142 mmol/L (135-144)
[2018-11-30] MEDS: SOD CHLORIDE 0.9% 0 ML IV (17:41)
[2018-11-30 17:42] LABS: POTASSIUM 2.8 mmol/L (3.5-5.1)
[2018-11-30 17:49] LABS: TROPONIN-I < 0.012 ng/ml (0.000-0.120)
[2018-11-30] MEDS: HYDROmorphONE 2 MG/ML SYG IV (17:51)
[2018-11-30 18:04] LABS: ACANTHOCYTES 1+ (0-0); ANISOCYTOSIS 2+ (0-0); BAND NEUTROPHILS #M 0.3 10^3/ul (0.0-0.6); BAND NEUTROPHILS % (M) 3 % (0-4); BASOPHIL #M 0.1 10^3/ul (0.0-0.0); BASOPHILS % (M) 1 % (0-2); BURR CELLS 1+ (0-0); GIANT THROMBO% (M) 6 % (0-0); HYPOCHROMASIA 3+ (0-0); LYMPHOCYTES #M 1.4 10^3/ul (0.8-2.9); LYMPHOCYTES % (M) 14 % (15-51); MICROCYTOSIS 2+ (0-0); MONOCYTE #M 0.2 10^3/ul (0.3-0.9); MONOCYTES % (M) 2 % (0-11); OVALOCYTES 1+ (0-0); PLATELET ESTIMATE NORMAL; POIKILOCYTOSIS 1+ (0-0); POLYCHROMASIA 1+ (0-0); SEG NEUT #M 8.5 10^3/ul (1.6-7.5); SEGMENTED NEUTROPHILS (M) % 80 % (39-77); SMUDGE%M 1 % (0-0); TEAR DROP CELLS 1+ (0-0)
[2018-11-30] MEDS: MAGNESIUM SULFATE 2 GM/50 ML 50 ML IVPB (18:05)
[2018-11-30] MEDS ORDERED: ONDANSETRON 4 MG INJ IV (18:30)
[2018-11-30] MEDS ORDERED: ACETAMINOPHEN 325 MG TAB PO (18:30)
[2018-11-30 18:32] LABS: INR 1.11; PARTIAL THROMBOPLASTIN TIME 30.3 Sec (23.0-35.0); PROTIME 14.4 Sec (11.9-14.9); PT RATIO 1.1
[2018-11-30 19:20] LABS: ALANINE AMINOTRANSFERASE 20 IU/L (13-69); ALBUMIN 3.8 g/dl (3.3-4.9); ALKALINE PHOSPHATASE 76 IU/L (42-121); ASPARTATE AMINO TRANSFERASE 24 IU/L (15-46); BILIRUBIN,INDIRECT 0.1 mg/dl (0-1.1); BILIRUBIN,TOTAL 0.1 mg/dl (0.2-1.3); TOTAL PROTEIN 7.2 g/dl (6.1-8.1)
[2018-11-30] MEDS: IOHEXOL 14.3 MG(I)/ML (ADULT) BTL PO (21:30)
[2018-11-30] MEDS ORDERED: NACL 0.9% 3 ML SYG IV (21:30)
[2018-11-30] MEDS: SOD CHLORIDE 0.9% 1,000 ML IV (21:50)
[2018-11-30] MEDS: PANTOPRAZOLE 40 MG INJ IV (21:50)
[2018-11-30] MEDS: HYDROCODONE/APAP (5/325) TAB PO (23:32)
[2018-12-01] MEDS: POTASSIUM CHLORIDE 100 ML IVPB ×2 (01:58→02:00)
[2018-12-01] MEDS: morphine 2 MG INJ IV ×7 (02:08→20:42)
[2018-12-01] MEDS: SOD CHLORIDE 0.9% 100 ML (02:59)
[2018-12-01] MEDS: IOHEXOL 300MG/ML 150 ML BTL (02:59)
[2018-12-01] MEDS: PANTOPRAZOLE 40 MG INJ IV ×2 (05:57→17:57)
[2018-12-01 06:21] LABS: ADD MAN DIFF? NO
[2018-12-01 06:31] LABS: ABNORMAL IP MESSAGE 1; BASOPHILS % 0.4 % (0.0-2.0); EOSINOPHILS % 0.4 % (0.0-7.0); HEMATOCRIT 19.5 % (42.0-52.0); LYMPHOCYTES % 13.2 % (15.0-51.0); MEAN CORPUSCULAR HEMOGLOBIN 21.4 pg (29.0-33.0); MEAN CORPUSCULAR HGB CONC 29.2 g/dl (32.0-37.0); MEAN CORPUSCULAR VOLUME 73.3 fl (82.0-101.0); MEAN PLATELET VOLUME 10.3 fl (7.4-10.4); MONOCYTE # 0.4 10^3/ul (0.3-0.9); MONOCYTES % 4.6 % (0.0-11.0); NEUTROPHIL # 6.3 10^3/ul (1.6-7.5); NEUTROPHILS % 80.8 % (39.0-77.0); NUCLEATED RED BLOOD CELLS% 0.4 /100WBC (0.0-0.0); PLATELET COUNT 373 10^3/UL (140-415); POSITIVE DIFF @See below; RED BLOOD COUNT 2.66 10^6/ul (4.70-6.10); RED CELL DISTRIBUTION WIDTH 21.6 % (11.5-14.5)
[2018-12-01 06:31] LABS: WHITE BLOOD COUNT 7.8 10^3/ul (4.8-10.8)
[2018-12-01 06:39] LABS: HEMOGLOBIN 5.7 g/dl (14.0-18.0)
[2018-12-01 07:05] LABS: ALANINE AMINOTRANSFERASE 13 IU/L (13-69); ALBUMIN 3.3 g/dl (3.3-4.9); ALBUMIN/GLOBULIN RATIO 1.06; ALKALINE PHOSPHATASE 62 IU/L (42-121); ANION GAP 8 (5-13); ASPARTATE AMINO TRANSFERASE 11 IU/L (15-46); BILIRUBIN,INDIRECT 0.4 mg/dl (0-1.1); BILIRUBIN,TOTAL 0.4 mg/dl (0.2-1.3); BLOOD UREA NITROGEN 11 mg/dl (7-20); CALCIUM 8.4 mg/dl (8.4-10.2); CARBON DIOXIDE 26 mmol/L (21-31); CHLORIDE 109 mmol/L (97-110); Estimated GFR > 60 mL/min (>60); GLUCOSE 124 mg/dl (70-220); MAGNESIUM 2.2 mg/dl (1.7-2.5); POTASSIUM 3.2 mmol/L (3.5-5.1); SODIUM 143 mmol/L (135-144); TOTAL PROTEIN 6.4 g/dl (6.1-8.1)
[2018-12-01 07:23] LABS: IRON 15 ug/dl (35-150)
[2018-12-01 07:34] LABS: % IRON SATURATION 4 % SAT (22-52); TOTAL IRON BINDING CAPACITY 380 ug/dl (241-421)
[2018-12-01] MEDS: SUCRALFATE 1 GM TAB PO ×4 (08:22→20:41)
[2018-12-01] MEDS: POTASSIUM CHLORIDE (SR) 20 MEQ TAB PO (11:17)
[2018-12-01 15:59] LABS: ADD MAN DIFF? NO
[2018-12-01 16:01] LABS: WHITE BLOOD COUNT 8.5 10^3/ul (4.8-10.8)
[2018-12-01 16:01] LABS: ABNORMAL IP MESSAGE 1; BASOPHILS % 0.5 % (0.0-2.0); EOSINOPHILS % 0.2 % (0.0-7.0); HEMATOCRIT 22.7 % (42.0-52.0); LYMPHOCYTES # 0.8 10^3/ul (0.8-2.9); LYMPHOCYTES % 9.7 % (15.0-51.0); MEAN CORPUSCULAR HEMOGLOBIN 22.1 pg (29.0-33.0); MEAN CORPUSCULAR HGB CONC 30.4 g/dl (32.0-37.0); MEAN CORPUSCULAR VOLUME 72.8 fl (82.0-101.0); MONOCYTE # 0.4 10^3/ul (0.3-0.9); MONOCYTES % 4.7 % (0.0-11.0); NEUTROPHIL # 7.2 10^3/ul (1.6-7.5); NEUTROPHILS % 84.4 % (39.0-77.0); NUCLEATED RED BLOOD CELLS% 0.4 /100WBC (0.0-0.0); PLATELET COUNT 392 10^3/UL (140-415); POSITIVE DIFF @See below; RED BLOOD COUNT 3.12 10^6/ul (4.70-6.10); RED CELL DISTRIBUTION WIDTH 21.5 % (11.5-14.5)
[2018-12-01 16:04] LABS: HEMOGLOBIN 6.9 g/dl (14.0-18.0)
[2018-12-01] MEDS: morphine 4 MG/ML VIAL IV (21:39)
[2018-12-02] MEDS: morphine 4 MG/ML VIAL IV ×7 (00:51→21:48)
[2018-12-02] MEDS: HYDROCODONE/APAP (5/325) TAB PO ×2 (02:57→17:24)
[2018-12-02] MEDS: PANTOPRAZOLE 40 MG INJ IV ×2 (06:00→17:58)
[2018-12-02] MEDS: SUCRALFATE 1 GM TAB PO ×4 (08:16→22:11)
[2018-12-02 09:55] LABS: WHITE BLOOD COUNT 8.6 10^3/ul (4.8-10.8)
[2018-12-02 09:55] LABS: ADD MAN DIFF? NO; BASOPHILS % 0.5 % (0.0-2.0); EOSINOPHILS % 0.2 % (0.0-7.0); HEMATOCRIT 24.6 % (42.0-52.0); HEMOGLOBIN 7.5 g/dl (14.0-18.0); LYMPHOCYTES # 0.8 10^3/ul (0.8-2.9); LYMPHOCYTES % 9.6 % (15.0-51.0); MEAN CORPUSCULAR HEMOGLOBIN 22.7 pg (29.0-33.0); MEAN CORPUSCULAR HGB CONC 30.5 g/dl (32.0-37.0); MEAN CORPUSCULAR VOLUME 74.3 fl (82.0-101.0); MEAN PLATELET VOLUME 10.1 fl (7.4-10.4); MONOCYTE # 0.6 10^3/ul (0.3-0.9); MONOCYTES % 6.4 % (0.0-11.0); NEUTROPHIL # 7.2 10^3/ul (1.6-7.5); PLATELET COUNT 366 10^3/UL (140-415); RED BLOOD COUNT 3.31 10^6/ul (4.70-6.10); RED CELL DISTRIBUTION WIDTH 21.4 % (11.5-14.5)
[2018-12-02 10:12] LABS: MAGNESIUM 2.1 mg/dl (1.7-2.5)
[2018-12-02 10:12] LABS: PHOSPHORUS 3.5 mg/dl (2.5-4.9)
[2018-12-02 10:13] LABS: ALANINE AMINOTRANSFERASE 17 IU/L (13-69); ALBUMIN 3.1 g/dl (3.3-4.9); ALBUMIN/GLOBULIN RATIO 1.06; ALKALINE PHOSPHATASE 68 IU/L (42-121); ANION GAP 7 (5-13); ASPARTATE AMINO TRANSFERASE 11 IU/L (15-46); BILIRUBIN,INDIRECT 0.8 mg/dl (0-1.1); BILIRUBIN,TOTAL 0.8 mg/dl (0.2-1.3); BLOOD UREA NITROGEN 8 mg/dl (7-20); CALCIUM 8.6 mg/dl (8.4-10.2); CARBON DIOXIDE 28 mmol/L (21-31); CHLORIDE 103 mmol/L (97-110); CREATININE 0.62 mg/dl (0.61-1.24); Estimated GFR > 60 mL/min (>60); GLUCOSE 87 mg/dl (70-220); POTASSIUM 3.3 mmol/L (3.5-5.1); SODIUM 138 mmol/L (135-144)
[2018-12-02] MEDS: POTASSIUM CHLORIDE 50 ML IVPB ×3 (12:05→18:20)
[2018-12-02] MEDS: SOD FERRIC GLUC COMPLX 125 MG in SOD CHLORIDE 0.9% 100 ML IVPB (12:06)
[2018-12-02] MEDS ORDERED: ONDANSETRON 4 MG INJ IV (17:00)
[2018-12-02] MEDS ORDERED: MEPERIDINE 25 MG INJ IV (17:00)
[2018-12-02] MEDS ORDERED: FENTAnyl 50 MCG/ML VIAL IV (17:00)
[2018-12-02] MEDS ORDERED: DIPHENHYDRAMINE 50 MG INJ IV (17:00)
[2018-12-02 22:28] LABS: IMMEDIATE SPIN CROSSMATCH 1 5
[2018-12-03] MEDS: HYDROmorphONE 1 MG/ML SYG IV ×5 (00:17→20:48)
[2018-12-03] MEDS: HYDROCODONE/APAP (5/325) TAB PO ×3 (03:06→23:08)
[2018-12-03 05:27] LABS: ADD MAN DIFF? NO
[2018-12-03 05:32] LABS: WHITE BLOOD COUNT 9.7 10^3/ul (4.8-10.8)
[2018-12-03 05:32] LABS: BASOPHILS % 0.2 % (0.0-2.0); EOSINOPHILS % 0.4 % (0.0-7.0); HEMATOCRIT 29.1 % (42.0-52.0); HEMOGLOBIN 8.9 g/dl (14.0-18.0); LYMPHOCYTES # 0.9 10^3/ul (0.8-2.9); LYMPHOCYTES % 9.3 % (15.0-51.0); MEAN CORPUSCULAR HEMOGLOBIN 23.2 pg (29.0-33.0); MEAN CORPUSCULAR HGB CONC 30.6 g/dl (32.0-37.0); MEAN PLATELET VOLUME 10.7 fl (7.4-10.4); MONOCYTE # 0.6 10^3/ul (0.3-0.9); MONOCYTES % 6.2 % (0.0-11.0); NEUTROPHIL # 8.1 10^3/ul (1.6-7.5); NEUTROPHILS % 83.3 % (39.0-77.0); PLATELET COUNT 407 10^3/UL (140-415); RED BLOOD COUNT 3.83 10^6/ul (4.70-6.10); RED CELL DISTRIBUTION WIDTH 21.6 % (11.5-14.5)
[2018-12-03] MEDS: PANTOPRAZOLE 40 MG INJ IV ×2 (05:52→17:03)
[2018-12-03 05:59] LABS: ALANINE AMINOTRANSFERASE 11 IU/L (13-69); ALBUMIN 3.5 g/dl (3.3-4.9); ALBUMIN/GLOBULIN RATIO 0.92; ALKALINE PHOSPHATASE 72 IU/L (42-121); ANION GAP 10 (5-13); ASPARTATE AMINO TRANSFERASE 17 IU/L (15-46); BILIRUBIN,INDIRECT 0.8 mg/dl (0-1.1); BILIRUBIN,TOTAL 0.8 mg/dl (0.2-1.3); BLOOD UREA NITROGEN 6 mg/dl (7-20); CALCIUM 8.7 mg/dl (8.4-10.2); CARBON DIOXIDE 30 mmol/L (21-31); CHLORIDE 97 mmol/L (97-110); CREATININE 0.59 mg/dl (0.61-1.24); Estimated GFR > 60 mL/min (>60); GLUCOSE 94 mg/dl (70-220); POTASSIUM 3.3 mmol/L (3.5-5.1); SODIUM 137 mmol/L (135-144); TOTAL PROTEIN 7.3 g/dl (6.1-8.1)
[2018-12-03] MEDS: SUCRALFATE 1 GM TAB PO ×4 (08:25→20:48)
[2018-12-03] MEDS: SOD FERRIC GLUC COMPLX 125 MG in SOD CHLORIDE 0.9% 100 ML IVPB (12:08)
[2018-12-03] MEDS: morphine (ER) 30 MG TAB PO ×2 (17:03→21:00)
[2018-12-04 05:09] LABS: ADD MAN DIFF? NO
[2018-12-04 05:12] LABS: WHITE BLOOD COUNT 9.1 10^3/ul (4.8-10.8)
[2018-12-04 05:12] LABS: ABNORMAL IP MESSAGE 1; BASOPHILS % 0.4 % (0.0-2.0); EOSINOPHILS # 0.1 10^3/ul (0.0-0.5); EOSINOPHILS % 0.5 % (0.0-7.0); HEMATOCRIT 30.1 % (42.0-52.0); HEMOGLOBIN 9.3 g/dl (14.0-18.0); LYMPHOCYTES # 1.5 10^3/ul (0.8-2.9); LYMPHOCYTES % 16.2 % (15.0-51.0); MEAN CORPUSCULAR HGB CONC 30.9 g/dl (32.0-37.0); MEAN CORPUSCULAR VOLUME 74.5 fl (82.0-101.0); MONOCYTE # 0.7 10^3/ul (0.3-0.9); MONOCYTES % 7.2 % (0.0-11.0); NEUTROPHIL # 6.9 10^3/ul (1.6-7.5); NEUTROPHILS % 75.5 % (39.0-77.0); PLATELET COUNT 376 10^3/UL (140-415); POSITIVE DIFF @See below; RED BLOOD COUNT 4.04 10^6/ul (4.70-6.10); RED CELL DISTRIBUTION WIDTH 22.1 % (11.5-14.5)
[2018-12-04 05:36] LABS: ALANINE AMINOTRANSFERASE 12 IU/L (13-69); ALBUMIN 3.4 g/dl (3.3-4.9); ALBUMIN/GLOBULIN RATIO 0.97; ALKALINE PHOSPHATASE 79 IU/L (42-121); ANION GAP 9 (5-13); ASPARTATE AMINO TRANSFERASE 13 IU/L (15-46); BILIRUBIN,INDIRECT 0.5 mg/dl (0-1.1); BILIRUBIN,TOTAL 0.5 mg/dl (0.2-1.3); BLOOD UREA NITROGEN 5 mg/dl (7-20); CALCIUM 8.8 mg/dl (8.4-10.2); CARBON DIOXIDE 33 mmol/L (21-31); CHLORIDE 96 mmol/L (97-110); CREATININE 0.67 mg/dl (0.61-1.24); Estimated GFR > 60 mL/min (>60); GLUCOSE 94 mg/dl (70-220); SODIUM 138 mmol/L (135-144); TOTAL PROTEIN 6.9 g/dl (6.1-8.1)
[2018-12-04 05:47] LABS: POTASSIUM 2.9 mmol/L (3.5-5.1)
[2018-12-04] MEDS: POTASSIUM CHLORIDE (SR) 10 MEQ TAB PO (06:21)
[2018-12-04] MEDS: PANTOPRAZOLE 40 MG INJ IV ×2 (06:22→18:26)
[2018-12-04] MEDS: HYDROmorphONE 1 MG/ML SYG IV ×4 (06:22→23:43)
[2018-12-04 07:26] LABS: MAGNESIUM 1.9 mg/dl (1.7-2.5)
[2018-12-04] MEDS: SUCRALFATE 1 GM TAB PO ×4 (09:21→20:00)
[2018-12-04] MEDS: morphine (ER) 30 MG TAB PO ×2 (09:21→20:00)
[2018-12-04] MEDS: HYDROCODONE/APAP (5/325) TAB PO ×3 (09:26→21:41)
[2018-12-04] MEDS: SOD FERRIC GLUC COMPLX 125 MG in SOD CHLORIDE 0.9% 100 ML IVPB (14:47)
[2018-12-05] MEDS: PANTOPRAZOLE 40 MG INJ IV ×2 (05:37→18:02)
[2018-12-05] MEDS: HYDROmorphONE 1 MG/ML SYG IV ×4 (05:37→18:02)
[2018-12-05 05:38] LABS: ADD MAN DIFF? NO
[2018-12-05 05:51] LABS: WHITE BLOOD COUNT 9.4 10^3/ul (4.8-10.8)
[2018-12-05 05:52] LABS: ABNORMAL IP MESSAGE 1; BASOPHIL # 0.1 10^3/ul (0.0-0.1); BASOPHILS % 0.5 % (0.0-2.0); EOSINOPHILS # 0.1 10^3/ul (0.0-0.5); EOSINOPHILS % 1.1 % (0.0-7.0); HEMATOCRIT 30.4 % (42.0-52.0); HEMOGLOBIN 9.3 g/dl (14.0-18.0); LYMPHOCYTES # 1.3 10^3/ul (0.8-2.9); LYMPHOCYTES % 13.7 % (15.0-51.0); MEAN CORPUSCULAR HGB CONC 30.6 g/dl (32.0-37.0); MEAN CORPUSCULAR VOLUME 75.2 fl (82.0-101.0); MEAN PLATELET VOLUME 10.5 fl (7.4-10.4); MONOCYTE # 0.6 10^3/ul (0.3-0.9); MONOCYTES % 6.7 % (0.0-11.0); NEUTROPHIL # 7.3 10^3/ul (1.6-7.5); NEUTROPHILS % 77.5 % (39.0-77.0); PLATELET COUNT 410 10^3/UL (140-415); POSITIVE DIFF @See below; RED BLOOD COUNT 4.04 10^6/ul (4.70-6.10); RED CELL DISTRIBUTION WIDTH 23.2 % (11.5-14.5)
[2018-12-05] MEDS: morphine (ER) 30 MG TAB PO ×2 (08:43→20:45)
[2018-12-05] MEDS: SUCRALFATE 1 GM TAB PO ×4 (08:43→20:44)
[2018-12-05 10:59] LABS: ANION GAP 10 (5-13); BLOOD UREA NITROGEN 7 mg/dl (7-20); CALCIUM 8.9 mg/dl (8.4-10.2); CARBON DIOXIDE 32 mmol/L (21-31); CHLORIDE 98 mmol/L (97-110); CREATININE 0.63 mg/dl (0.61-1.24); Estimated GFR > 60 mL/min (>60); GLUCOSE 95 mg/dl (70-220); POTASSIUM 3.1 mmol/L (3.5-5.1); SODIUM 140 mmol/L (135-144)
[2018-12-05] MEDS: HYDROCODONE/APAP (5/325) TAB PO ×2 (12:26→19:52)
[2018-12-05] MEDS: SOD FERRIC GLUC COMPLX 125 MG in SOD CHLORIDE 0.9% 100 ML IVPB (12:57)
[2018-12-05] MEDS: POTASSIUM CHLORIDE (SR) 20 MEQ TAB PO (18:02)
[2018-12-06] MEDS: HYDROmorphONE 1 MG/ML SYG IV ×4 (00:07→16:36)
[2018-12-06 06:08] LABS: ANION GAP 11 (5-13); BLOOD UREA NITROGEN 8 mg/dl (7-20); CALCIUM 8.8 mg/dl (8.4-10.2); CARBON DIOXIDE 31 mmol/L (21-31); CHLORIDE 97 mmol/L (97-110); CREATININE 0.67 mg/dl (0.61-1.24); Estimated GFR > 60 mL/min (>60); GLUCOSE 107 mg/dl (70-220); POTASSIUM 3.4 mmol/L (3.5-5.1); SODIUM 139 mmol/L (135-144)
[2018-12-06] MEDS: PANTOPRAZOLE 40 MG INJ IV ×2 (06:16→18:26)
[2018-12-06] MEDS: HYDROCODONE/APAP (5/325) TAB PO ×2 (06:18→11:17)
[2018-12-06] MEDS: SUCRALFATE 1 GM TAB PO ×4 (08:57→20:21)
[2018-12-06] MEDS: morphine (ER) 30 MG TAB PO (08:57)
[2018-12-06] MEDS: PROPOFOL 20 ML (10:05)
[2018-12-06] MEDS: LIDOCAINE 2% (SDV) 5 ML INJ (10:05)
[2018-12-06] MEDS: IOHEXOL 14.3 MG(I)/ML (ADULT) BTL PO (10:06)
[2018-12-06] MEDS: SOD FERRIC GLUC COMPLX 125 MG in SOD CHLORIDE 0.9% 100 ML IVPB (12:53)
[2018-12-06] MEDS: morphine (ER) 15 MG TAB PO (20:21)
[2018-12-07] MEDS: PANTOPRAZOLE 40 MG INJ IV ×2 (05:39→16:49)
[2018-12-07] MEDS: SUCRALFATE 1 GM TAB PO ×4 (08:40→20:07)
[2018-12-07] MEDS: morphine (ER) 15 MG TAB PO (08:40)
[2018-12-07] MEDS: HYDROmorphONE 1 MG/ML SYG IV ×2 (09:23→18:49)
[2018-12-07] MEDS: morphine (ER) 30 MG TAB PO (20:08)
[2018-12-07] MEDS: OXYCODONE/ACETAMINOPHEN (10/325) TAB PO (22:27)
[2018-12-08] MEDS: OXYCODONE/ACETAMINOPHEN (10/325) TAB PO ×4 (04:37→22:41)
[2018-12-08] MEDS: PANTOPRAZOLE 40 MG INJ IV ×2 (05:47→17:46)
[2018-12-08 05:51] LABS: ANION GAP 9 (5-13); BLOOD UREA NITROGEN 11 mg/dl (7-20); CALCIUM 9.3 mg/dl (8.4-10.2); CARBON DIOXIDE 32 mmol/L (21-31); CHLORIDE 99 mmol/L (97-110); CREATININE 0.69 mg/dl (0.61-1.24); Estimated GFR > 60 mL/min (>60); GLUCOSE 108 mg/dl (70-220); POTASSIUM 3.5 mmol/L (3.5-5.1); SODIUM 140 mmol/L (135-144)
[2018-12-08] MEDS: SUCRALFATE 1 GM TAB PO ×4 (09:20→21:29)
[2018-12-08] MEDS: morphine (ER) 30 MG TAB PO ×2 (09:24→21:29)
[2018-12-08 17:32] LABS: RETICULOCYTE RBC 4.17
[2018-12-08 17:32] LABS: RETICULOCYTE COUNT # 0.143 X10^6 (0.020-0.110); RETICULOCYTE COUNT % 3.4 % (0.5-1.5)
[2018-12-08 17:50] LABS: ALANINE AMINOTRANSFERASE 10 IU/L (13-69); ALBUMIN 3.8 g/dl (3.3-4.9); ALBUMIN/GLOBULIN RATIO 0.97; ALKALINE PHOSPHATASE 119 IU/L (42-121); ANION GAP 11 (5-13); ASPARTATE AMINO TRANSFERASE 25 IU/L (15-46); BILIRUBIN,INDIRECT 0.3 mg/dl (0-1.1); BILIRUBIN,TOTAL 0.3 mg/dl (0.2-1.3); BLOOD UREA NITROGEN 12 mg/dl (7-20); CALCIUM 9.3 mg/dl (8.4-10.2); CARBON DIOXIDE 32 mmol/L (21-31); CHLORIDE 96 mmol/L (97-110); CREATININE 0.79 mg/dl (0.61-1.24); Estimated GFR > 60 mL/min (>60); GLUCOSE 99 mg/dl (70-220); POTASSIUM 3.7 mmol/L (3.5-5.1); SODIUM 139 mmol/L (135-144); TOTAL PROTEIN 7.7 g/dl (6.1-8.1)
[2018-12-09 05:16] LABS: ADD MAN DIFF? NO
[2018-12-09 05:18] LABS: WHITE BLOOD COUNT 7.6 10^3/ul (4.8-10.8)
[2018-12-09 05:18] LABS: ABNORMAL IP MESSAGE 1; BASOPHIL # 0.1 10^3/ul (0.0-0.1); BASOPHILS % 0.7 % (0.0-2.0); EOSINOPHILS # 0.2 10^3/ul (0.0-0.5); EOSINOPHILS % 2.3 % (0.0-7.0); HEMATOCRIT 31.4 % (42.0-52.0); HEMOGLOBIN 9.4 g/dl (14.0-18.0); LYMPHOCYTES # 1.4 10^3/ul (0.8-2.9); LYMPHOCYTES % 17.9 % (15.0-51.0); MEAN CORPUSCULAR HEMOGLOBIN 23.2 pg (29.0-33.0); MEAN CORPUSCULAR HGB CONC 29.9 g/dl (32.0-37.0); MEAN CORPUSCULAR VOLUME 77.3 fl (82.0-101.0); MEAN PLATELET VOLUME 10.3 fl (7.4-10.4); MONOCYTE # 0.5 10^3/ul (0.3-0.9); NEUTROPHIL # 5.5 10^3/ul (1.6-7.5); NEUTROPHILS % 72.8 % (39.0-77.0); PLATELET COUNT 482 10^3/UL (140-415); POSITIVE DIFF @See below; RED BLOOD COUNT 4.06 10^6/ul (4.70-6.10)
[2018-12-09] MEDS: PANTOPRAZOLE 40 MG INJ IV (05:39)
[2018-12-09] MEDS: OXYCODONE/ACETAMINOPHEN (10/325) TAB PO ×5 (05:40→23:36)
[2018-12-09] MEDS: FOLIC ACID 1 MG TAB PO (09:03)
[2018-12-09] MEDS: morphine (ER) 30 MG TAB PO ×2 (09:03→21:14)
[2018-12-09] MEDS: SUCRALFATE 1 GM TAB PO ×4 (09:03→23:36)
[2018-12-09] MEDS ORDERED: ACETAMINOPHEN 500 MG TAB PO (15:30)
[2018-12-09] MEDS: PANTOPRAZOLE (EC) 40 MG TAB PO (17:52)
[2018-12-10] MEDS: OXYCODONE/ACETAMINOPHEN (10/325) TAB PO ×2 (05:16→11:55)
[2018-12-10] MEDS: PANTOPRAZOLE (EC) 40 MG TAB PO ×2 (05:16→18:11)
[2018-12-10] MEDS: HYDROmorphONE 1 MG/ML SYG IV (07:59)
[2018-12-10] MEDS: FOLIC ACID 1 MG TAB PO (08:03)
[2018-12-10] MEDS: SUCRALFATE 1 GM TAB PO ×4 (08:03→20:35)
[2018-12-10] MEDS: morphine (ER) 30 MG TAB PO ×2 (09:12→20:35)
[2018-12-10] MEDS ORDERED: DIPHENHYDRAMINE 25 MG CAP PO (11:00)
[2018-12-10] MEDS ORDERED: PEMBROLIZUMAB IV (11:30)
[2018-12-10] MEDS ORDERED: [UNRECOGNIZED DRUG - OTHER] IV (11:30)
[2018-12-10] MEDS: DIPHENHYDRAMINE 25 MG CAP PO (15:50)
[2018-12-10] MEDS: ACETAMINOPHEN 500 MG TAB PO (15:50)
[2018-12-10] MEDS: [UNRECOGNIZED DRUG - OTHER] IV (16:16)
[2018-12-10] MEDS: PEMBROLIZUMAB IV (16:16)
[2018-12-11] MEDS: OXYCODONE/ACETAMINOPHEN (10/325) TAB PO ×5 (02:32→23:31)
[2018-12-11] MEDS: PANTOPRAZOLE (EC) 40 MG TAB PO ×2 (06:26→17:36)
[2018-12-11] MEDS: FOLIC ACID 1 MG TAB PO (08:50)
[2018-12-11] MEDS: SUCRALFATE 1 GM TAB PO ×4 (08:50→20:19)
[2018-12-11] MEDS: morphine (ER) 30 MG TAB PO ×2 (08:51→21:31)
[2018-12-11] MEDS: HYDROmorphONE 1 MG/ML SYG IV ×2 (13:18→20:19)
[2018-12-12] MEDS: HYDROmorphONE 1 MG/ML SYG IV ×4 (02:13→19:11)
[2018-12-12] MEDS: OXYCODONE/ACETAMINOPHEN (10/325) TAB PO ×4 (04:40→22:56)
[2018-12-12 05:15] LABS: ADD MAN DIFF? NO
[2018-12-12 05:21] LABS: ABNORMAL IP MESSAGE 1; BASOPHIL # 0.1 10^3/ul (0.0-0.1); BASOPHILS % 0.7 % (0.0-2.0); EOSINOPHILS # 0.1 10^3/ul (0.0-0.5); EOSINOPHILS % 1.2 % (0.0-7.0); HEMATOCRIT 30.5 % (42.0-52.0); HEMOGLOBIN 9.2 g/dl (14.0-18.0); LYMPHOCYTES % 9.7 % (15.0-51.0); MEAN CORPUSCULAR HEMOGLOBIN 22.9 pg (29.0-33.0); MEAN CORPUSCULAR HGB CONC 30.2 g/dl (32.0-37.0); MEAN CORPUSCULAR VOLUME 75.9 fl (82.0-101.0); MEAN PLATELET VOLUME 10.3 fl (7.4-10.4); MONOCYTE # 0.6 10^3/ul (0.3-0.9); MONOCYTES % 6.1 % (0.0-11.0); NEUTROPHIL # 8.1 10^3/ul (1.6-7.5); NEUTROPHILS % 81.9 % (39.0-77.0); PLATELET COUNT 570 10^3/UL (140-415); POSITIVE DIFF @See below; RED BLOOD COUNT 4.02 10^6/ul (4.70-6.10)
[2018-12-12 05:21] LABS: WHITE BLOOD COUNT 9.9 10^3/ul (4.8-10.8)
[2018-12-12 05:42] LABS: ANION GAP 11 (5-13); BLOOD UREA NITROGEN 12 mg/dl (7-20); CALCIUM 9.5 mg/dl (8.4-10.2); CARBON DIOXIDE 30 mmol/L (21-31); CHLORIDE 99 mmol/L (97-110); CREATININE 0.79 mg/dl (0.61-1.24); Estimated GFR > 60 mL/min (>60); GLUCOSE 123 mg/dl (70-220); PHOSPHORUS 4.7 mg/dl (2.5-4.9); POTASSIUM 4.1 mmol/L (3.5-5.1); SODIUM 140 mmol/L (135-144)
[2018-12-12] MEDS: PANTOPRAZOLE (EC) 40 MG TAB PO ×2 (06:18→19:12)
[2018-12-12] MEDS: SUCRALFATE 1 GM TAB PO ×4 (09:10→21:47)
[2018-12-12] MEDS: FOLIC ACID 1 MG TAB PO (09:10)
[2018-12-12] MEDS: morphine (ER) 30 MG TAB PO ×2 (09:10→21:47)
[2018-12-13] MEDS: HYDROmorphONE 1 MG/ML SYG IV ×3 (01:01→19:40)
[2018-12-13 05:18] LABS: ADD MAN DIFF? NO
[2018-12-13 05:26] LABS: ABNORMAL IP MESSAGE 1; BASOPHIL # 0.1 10^3/ul (0.0-0.1); BASOPHILS % 0.7 % (0.0-2.0); EOSINOPHILS # 0.1 10^3/ul (0.0-0.5); EOSINOPHILS % 1.7 % (0.0-7.0); HEMOGLOBIN 8.4 g/dl (14.0-18.0); LYMPHOCYTES # 1.1 10^3/ul (0.8-2.9); LYMPHOCYTES % 14.6 % (15.0-51.0); MEAN CORPUSCULAR HEMOGLOBIN 22.9 pg (29.0-33.0); MEAN CORPUSCULAR VOLUME 76.3 fl (82.0-101.0); MEAN PLATELET VOLUME 10.5 fl (7.4-10.4); MONOCYTE # 0.6 10^3/ul (0.3-0.9); MONOCYTES % 7.6 % (0.0-11.0); NEUTROPHIL # 5.8 10^3/ul (1.6-7.5); PLATELET COUNT 546 10^3/UL (140-415); POSITIVE DIFF @See below; RED BLOOD COUNT 3.67 10^6/ul (4.70-6.10)
[2018-12-13 05:26] LABS: WHITE BLOOD COUNT 7.7 10^3/ul (4.8-10.8)
[2018-12-13] MEDS: PANTOPRAZOLE (EC) 40 MG TAB PO ×2 (06:02→18:03)
[2018-12-13] MEDS: OXYCODONE/ACETAMINOPHEN (10/325) TAB PO ×3 (06:02→18:04)
[2018-12-13] MEDS: SUCRALFATE 1 GM TAB PO ×4 (09:35→21:37)
[2018-12-13] MEDS: POLYETHYLENE GLYCOL 17 GM PACKET PO (09:35)
[2018-12-13] MEDS: FOLIC ACID 1 MG TAB PO (09:35)
[2018-12-13] MEDS: DOCUSATE SODIUM 100 MG CAP PO ×2 (09:35→21:37)
[2018-12-13] MEDS: morphine (ER) 30 MG TAB PO ×2 (09:35→21:39)
[2018-12-14] MEDS: HYDROmorphONE 1 MG/ML SYG IV ×3 (00:10→12:47)
[2018-12-14] MEDS: OXYCODONE/ACETAMINOPHEN (10/325) TAB PO (03:37)
[2018-12-14 05:04] LABS: ADD MAN DIFF? NO
[2018-12-14 05:07] LABS: WHITE BLOOD COUNT 8.2 10^3/ul (4.8-10.8)
[2018-12-14 05:07] LABS: ABNORMAL IP MESSAGE 1; BASOPHIL # 0.1 10^3/ul (0.0-0.1); BASOPHILS % 0.6 % (0.0-2.0); EOSINOPHILS # 0.1 10^3/ul (0.0-0.5); EOSINOPHILS % 1.6 % (0.0-7.0); HEMATOCRIT 28.1 % (42.0-52.0); HEMOGLOBIN 8.3 g/dl (14.0-18.0); LYMPHOCYTES # 1.2 10^3/ul (0.8-2.9); LYMPHOCYTES % 14.9 % (15.0-51.0); MEAN CORPUSCULAR HEMOGLOBIN 22.9 pg (29.0-33.0); MEAN CORPUSCULAR HGB CONC 29.5 g/dl (32.0-37.0); MEAN CORPUSCULAR VOLUME 77.6 fl (82.0-101.0); MEAN PLATELET VOLUME 10.1 fl (7.4-10.4); MONOCYTE # 0.6 10^3/ul (0.3-0.9); MONOCYTES % 7.3 % (0.0-11.0); NEUTROPHIL # 6.2 10^3/ul (1.6-7.5); NEUTROPHILS % 75.4 % (39.0-77.0); PLATELET COUNT 581 10^3/UL (140-415); POSITIVE DIFF @See below; RED BLOOD COUNT 3.62 10^6/ul (4.70-6.10); RED CELL DISTRIBUTION WIDTH 24.4 % (11.5-14.5)
[2018-12-14] MEDS: PANTOPRAZOLE (EC) 40 MG TAB PO (06:35)
[2018-12-14] MEDS: SUCRALFATE 1 GM TAB PO ×2 (09:32→12:47)
[2018-12-14] MEDS: FOLIC ACID 1 MG TAB PO (09:32)
[2018-12-14] MEDS: DOCUSATE SODIUM 100 MG CAP PO (09:32)
[2018-12-14] MEDS: morphine (ER) 30 MG TAB PO (09:33)
[2018-12-14] MEDS: POLYETHYLENE GLYCOL 17 GM PACKET PO (09:33)
== END 2018-12-14 14:38 | disposition home or self-care (01) | DRG 374 ==
LOC: MS1 12-02 14:58 → E/R 16:29 → 6WM 18:18
PROC: 0DJ08ZZ Inspection of Upper Intestinal Tract, Via Natural or Artificial Opening Endoscopic (ICD-10-PCS; principal; 2018-12-02 16:00)
PROC: 30233N1 Transfusion of Nonautologous Red Blood Cells into Peripheral Vein, Percutaneous Approach (ICD-10-PCS; 2018-12-02 16:00)
DX: C18.9 Malignant neoplasm of colon, unspecified (principal); K26.6 Chronic or unspecified duodenal ulcer with both hemorrhage and perforation; D62 Acute posthemorrhagic anemia; C78.4 Secondary malignant neoplasm of small intestine; D50.0 Iron deficiency anemia secondary to blood loss (chronic); E87.6 Hypokalemia; Z87.891 Personal history of nicotine dependence; Z90.49 Acquired absence of other specified parts of digestive tract
CPT/HCPCS: 36415; 36430; 71045; 74019; 74150; 74177; 80048; 80053; 80076; 82728; 83036; 83540; 83735; 84100; 84484; 85025; 85045; 85610; 85730; 86850; 86900; 86901; 86920; 90686; 93005; 96374; 96375; 99291-25

== ENCOUNTER 2019-01-26 15:25 | Emergency (ER) | payer OTHER, MEDICAID ==
[2019-01-26 16:45] LABS: ADD MAN DIFF? NO
[2019-01-26 16:55] LABS: WHITE BLOOD COUNT 6.8 10^3/ul (4.8-10.8)
[2019-01-26 16:55] LABS: BASOPHIL # 0.1 10^3/ul (0.0-0.1); EOSINOPHILS % 0.3 % (0.0-7.0); HEMATOCRIT 37.3 % (42.0-52.0); HEMOGLOBIN 10.9 g/dl (14.0-18.0); LYMPHOCYTES # 2.2 10^3/ul (0.8-2.9); MEAN CORPUSCULAR HEMOGLOBIN 23.1 pg (29.0-33.0); MEAN CORPUSCULAR HGB CONC 29.2 g/dl (32.0-37.0); MEAN CORPUSCULAR VOLUME 79.2 fl (82.0-101.0); MEAN PLATELET VOLUME 10.1 fl (7.4-10.4); MONOCYTE # 0.5 10^3/ul (0.3-0.9); MONOCYTES % 6.8 % (0.0-11.0); NEUTROPHILS % 58.6 % (39.0-77.0); PLATELET COUNT 338 10^3/UL (140-415); RED BLOOD COUNT 4.71 10^6/ul (4.70-6.10); RED CELL DISTRIBUTION WIDTH 19.7 % (11.5-14.5)
[2019-01-26] MEDS: ONDANSETRON 4 MG INJ IV (17:04)
[2019-01-26] MEDS: morphine 4 MG/ML VIAL IV (17:04)
[2019-01-26 17:12] LABS: LIPASE 233 U/L (23-300)
[2019-01-26 17:13] LABS: ALBUMIN 4.9 g/dl (3.3-4.9); ALBUMIN/GLOBULIN RATIO 1.19; ALKALINE PHOSPHATASE 138 IU/L (42-121); ANION GAP 14 (5-13); ASPARTATE AMINO TRANSFERASE 27 IU/L (15-46); BILIRUBIN,INDIRECT 0.6 mg/dl (0-1.1); BILIRUBIN,TOTAL 0.6 mg/dl (0.2-1.3); BLOOD UREA NITROGEN 15 mg/dl (7-20); CALCIUM 10.9 mg/dl (8.4-10.2); CHLORIDE 90 mmol/L (97-110); Estimated GFR > 60 mL/min (>60); GLUCOSE 99 mg/dl (70-220); POTASSIUM 3.4 mmol/L (3.5-5.1); SODIUM 144 mmol/L (135-144)
[2019-01-26 17:14] LABS: INR 0.95; PROTIME 12.8 Sec (11.9-14.9)
[2019-01-26 17:25] LABS: TROPONIN-I < 0.012 ng/ml (0.000-0.120)
[2019-01-26 17:26] LABS: ALANINE AMINOTRANSFERASE 28 IU/L (13-69)
[2019-01-26 17:31] LABS: CARBON DIOXIDE 40 mmol/L (21-31)
== END 2019-01-26 18:41 | disposition home or self-care (01) ==
LOC: E/R 15:25
DX: C18.9 Malignant neoplasm of colon, unspecified (principal); D64.9 Anemia, unspecified
CPT/HCPCS: 36415; 74176; 80053; 83690; 84484; 85025; 85610; 85730; 86850; 86900; 86901; 93005; 96374; 96375; 99285-25